=== PATIENT | male | born 1950 | race Caucasian/White ===

== ENCOUNTER 2025-05-02 14:25 | Inpatient (IN) | payer OTHER, MEDICARE ==
[2025-05-02] MEDS ORDERED: Acetaminophen 325 MG TAB PO PRN (17:23)
[2025-05-02] MEDS ORDERED: Calcium Carbonate 500 MG ChewTAB PO PRN (17:23)
[2025-05-02] MEDS ORDERED: Dextrose 50% Abboject 50 ML SYRINGE SLOW IVP PRN (17:42)
[2025-05-02] MEDS ORDERED: Glucagon 1 MG/ML KIT IM PRN (17:42)
[2025-05-02] MEDS: Famotidine 20 MG TAB PO SCH (20:38)
[2025-05-03 05:56] LABS: #Basophils 0.1 thou/uL (0.0-0.2); #Eosinophils 0.4 thou/uL (0.0-0.7); #Lymphocytes 3.4 thou/uL (1.20-3.40); #Monocytes 0.6 thou/uL (0.11-0.59); #Neutrophils 3.7 thou/uL (1.40-6.50); %Basophils 0.9 % (0.0-1.0); %Eosinophils 4.4 % (0.0-10.0); %Lymphocytes 41.9 % (21.0-51.0); %Monocytes 7.2 % (0.0-10.0); %Neutrophils 45.6 % (42.0-75.0); Hematocrit 34.1 % (42.0-52.0); Hemoglobin 11.7 g/dL (14.0-18.0); Mean Corpuscular Hemoglobin 31.4 pg (27.0-31.0); Mean Corpuscular Volume 91.1 fl (78.0-98.0); Platelet Count 144 10x3/uL (130-400); Red Blood Cell (RBC) Count 3.75 mill/uL (4.70-6.10); White Blood Cell (WBC) Count 8.1 10x3/uL (4.8-10.8)
[2025-05-03 06:04] LABS: ALT (SGPT) 20 U/L (Less than 45); AST (SGOT) 23 U/L (11-34); Albumin 3.6 g/dL (3.1-4.5); Alkaline Phosphatase 67 U/L (40-110); Anion Gap 14 mmol/L (10-20); BUN (Urea Nitrogen) 30 mg/dL (8.4-25.7); Bilirubin, Total 0.6 mg/dL (0.3-1.2); Calc. Creatinine Clearance 65 mL/min (70-130); Calcium 9.6 mg/dL (7.8-10.44); Carbon Dioxide 26 mmol/L (23-31); Chloride 106 mmol/L (98-107); Globulin 3.9 g/dL (2.4-3.5); Glucose 104 mg/dL (83-110); Potassium 4.5 mmol/L (3.5-5.1); Sodium 141 mmol/L (136-145)
[2025-05-03] MEDS: Thiamine 100 MG TAB PO SCH (08:13)
[2025-05-03] MEDS: Enoxaparin 40 MG (0.4 mL) SYRINGE SC SCH (08:13)
[2025-05-03] MEDS: Aspirin 81 mg Enteric Coated Tablet PO SCH (08:13)
[2025-05-03] MEDS: Ergocalciferol 1.25 MG(50,000 UNITS) CAP PO SCH (08:13)
[2025-05-03] MEDS: Lisinopril 20 MG TAB PO SCH (08:13)
[2025-05-03] MEDS: glipiZIDE 5 MG TAB PO SCH (08:13)
[2025-05-03] MEDS: Multivitamin W/ Minerals 1 TAB PO SCH (08:14)
[2025-05-03] MEDS: Folic Acid 1 MG TAB PO SCH (08:14)
[2025-05-03 08:17] VITALS: BMI 25.3
[2025-05-04] MEDS: glipiZIDE 5 MG TAB PO SCH (09:05)
[2025-05-04 16:45] LABS: Glucose 51 mg/dL (83-110)
[2025-05-05] MEDS: glipiZIDE 5 MG TAB PO SCH (09:12)
[2025-05-10 05:11] LABS: #Basophils 0.0 thou/uL (0.0-0.2); #Eosinophils 0.4 thou/uL (0.0-0.7); #Lymphocytes 3.2 thou/uL (1.20-3.40); #Monocytes 0.4 thou/uL (0.11-0.59); #Neutrophils 2.4 thou/uL (1.40-6.50); %Basophils 0.4 % (0.0-1.0); %Eosinophils 6.8 % (0.0-10.0); %Lymphocytes 49.9 % (21.0-51.0); %Monocytes 6.5 % (0.0-10.0); %Neutrophils 36.5 % (42.0-75.0); Hematocrit 30.5 % (42.0-52.0); Hemoglobin 10.3 g/dL (14.0-18.0); Mean Corpuscular Hemoglobin 30.6 pg (27.0-31.0); Mean Corpuscular Volume 90.2 fl (78.0-98.0); Platelet Count 132 10x3/uL (130-400); Red Blood Cell (RBC) Count 3.38 mill/uL (4.70-6.10); White Blood Cell (WBC) Count 6.5 10x3/uL (4.8-10.8)
[2025-05-10 05:30] LABS: ALT (SGPT) 20 U/L (Less than 45); AST (SGOT) 24 U/L (11-34); Albumin 3.6 g/dL (3.1-4.5); Alkaline Phosphatase 61 U/L (40-110); Anion Gap 13 mmol/L (10-20); BUN (Urea Nitrogen) 26 mg/dL (8.4-25.7); Bilirubin, Total 0.6 mg/dL (0.3-1.2); Calc. Creatinine Clearance 52 mL/min (70-130); Calcium 9.2 mg/dL (7.8-10.44); Carbon Dioxide 21 mmol/L (23-31); Chloride 109 mmol/L (98-107); Globulin 3.6 g/dL (2.4-3.5); Glucose 91 mg/dL (83-110); Potassium 4.3 mmol/L (3.5-5.1); Sodium 139 mmol/L (136-145)
[2025-05-10] MEDS ORDERED: Polyethylene Glycol OPTH DROP 15 ML BOT EA EYE PRN (09:18)
[2025-05-11] MEDS: Senokot S 8.6-50 MG TAB PO PRN (08:42)
[2025-05-12 19:32] VITALS: BMI 25.2
[2025-05-15 07:49] VITALS: BP 148/71; TEMP 97.6
== END 2025-05-15 11:10 | disposition home or self-care (01) | DRG 945 ==
LOC: NAV ACUTE 16:55
PROVIDERS: ADMIT Student in an Organized Health Care Education/Training Program; ATTEND Student in an Organized Health Care Education/Training Program
PROC: F07Z9ZZ Gait Training/Functional Ambulation Treatment (ICD-10-PCS; principal; 2025-05-02)
DX: R53.1 Weakness (principal); I63.9 Cerebral infarction, unspecified; S22.49XA Multiple fractures of ribs, unspecified side, initial encounter for closed fracture; E11.3599 Type 2 diabetes mellitus with proliferative diabetic retinopathy without macular edema, unspecified eye; I10 Essential (primary) hypertension; E78.5 Hyperlipidemia, unspecified; F10.10 Alcohol abuse, uncomplicated; I65.22 Occlusion and stenosis of left carotid artery; R00.1 Bradycardia, unspecified; D53.9 Nutritional anemia, unspecified; E78.2 Mixed hyperlipidemia; M48.02 Spinal stenosis, cervical region; I51.7 Cardiomegaly; E55.9 Vitamin D deficiency, unspecified; Z79.82 Long term (current) use of aspirin; Z79.899 Other long term (current) drug therapy; Z82.49 Family history of ischemic heart disease and other diseases of the circulatory system; Z87.898 Personal history of other specified conditions
CPT/HCPCS: 36415; 36416; 80053; 82947; 85025; J1650; J1815